=== PATIENT | male | born 1945 | race Caucasian/White ===

== ENCOUNTER 2018-08-05 12:58 | Emergency (ER) | payer MEDICARE, OTHER, SELFPAY ==
[2018-08-05] VITALS (7 sets, daily range): BP systolic 157–167; BP diastolic 82–90; PULSE 65–95; RESP 14–26; TEMP 36.7; O2SAT 97–100; BMI 23.3
--- NOTE | 2018-08-05 13:13 | ED.GENADULT ---
HPI - General Adult <Gilda Herring PA-C - Last Filed: 08/05/18 20:44> General Chief complaint: Hypertension Stated complaint: elevated blood pressure and headaches Time Seen by Provider: 08/05/18 13:12 Source: patient Mode of arrival: ambulatory Limitations: no limitations History of Present Illness HPI narrative: This 72-year-old male comes in due to headache and elevated blood pressure today. He states that he woke up this morning and noted onset of a fairly severe headache, initially pain ?9-04/13/09?. He states he rested and applied an ice pack. He states that he does not remember whether he took any aspirin or any medication for it, sometimes he takes Excedrin, however headache has significantly improved since then, states maybe a 7 on the pain scale currently. He states that at lunchtime, he decided to check his blood pressure at home and noted it was 187/108. He states he got ?freaked out? due to the elevated reading and having the headache and came in to have this evaluated. He denies any acute vision change. He states that he had some significant nausea earlier, now very minimal. He did eat today. He has not had any vomiting. He denies any chest pain or pain elsewhere. He denies any dyspnea. He denies any swelling or pain in the extremities. No difficulty with speech, swallowing, coordination. He states that he has been under severe stress with a huge workload for months, even worse in the last couple of weeks. He states he did have some milder headaches last week for which he took some aspirin but was able to work. He does not typically get severe headaches like this. He states that he had some allergy symptoms last month but no respiratory or URI symptoms in the last week, no fever or other new symptoms on systems review. He was previously on blood pressure and cholesterol medication that he stopped roughly 6 months ago. Related Data Home Medications Medication Instructions Recorded Confirmed hydrochlorothiazide 25 mg PO QDAY #0 05/28/16 08/05/18 sildenafil [Viagra] 50 mg PO PRN PRN #0 05/28/16 08/05/18 simvastatin 20 mg PO HS #0 05/28/16 08/05/18 telmisartan [Micardis] 20 mg PO QDAY #0 05/28/16 08/05/18 Allergies Allergy/AdvReac Type Severity Reaction Status Date / Time No Known Drug Allergies Allergy Verified 08/05/18 13:08 Review of Systems <Gilda Herring PA-C - Last Filed: 08/05/18 20:44> Review of Systems ROS Unobtainable: All systems reviewed & are unremarkable except as noted in HPI and below PFSH <Gilda Herring PA-C - Last Filed: 08/05/18 20:44> Medical History (Updated 08/05/18 @ 15:30 by Gilda Herring PA-C) High cholesterol (Chronic) Hypertension (Chronic) Insomnia (Chronic) Strabismus, mechanical (Chronic) Surgical History (Updated 08/05/18 @ 14:05 by Gilda Herring PA-C) S/P inguinal hernia repair (Resolved) S/P shoulder surgery (Resolved) Social History Smoking Status: Former smoker Social History Smoking Status: Former smoker Comment: occ ETOH Exam <Gilda Herring PA-C - Last Filed: 08/05/18 20:44> Narrative Exam Narrative: GENERAL APPEARANCE: Patient sitting comfortably, in no distress. HEENT: PERRL, left eye deviates laterally when right fixates and vice versa, normal TMs and oropharynx, no sinus tenderness NECK/THYROID: Neck supple, no JVD. LUNGS: Clear to auscultation bilaterally. HEART: Regular rate and rhythm without murmur, normal S1, S2, no S3 or S4. ABDOMEN: Soft, NT, ND, + BS x 4 quadrants EXTREMITIES: No cyanosis. No calf tenderness NEUROLOGIC: Alert and oriented, normal speech, gait and coordination. Initial Vital Signs Initial Vital Signs: Vital Signs Temperature 98.1 F 08/05/18 13:02 Pulse Rate 95 H 08/05/18 13:02 Respiratory Rate 14 08/05/18 13:02 Blood Pressure 167/89 H 08/05/18 13:02 Pulse Oximetry 97 08/05/18 13:02 <Anurag Schmitt DO - Last Filed: 08/09/18 02:11> Initial Vital Signs Initial Vital Signs: Vital Signs Temperature 98.1 F 08/05/18 13:02 Pulse Rate 95 H 08/05/18 13:02 Respiratory Rate 14 08/05/18 13:02 Blood Pressure 167/89 H 08/05/18 13:02 Pulse Oximetry 97 08/05/18 13:02 Course <Gilda Herring PA-C - Last Filed: 08/05/18 20:44> Additional Information: Patient reported nausea resolved at time of discharge. he had had improvement in headache prior to arrival, minimally improved here. [place]. findings reviewed and advised return if any acutely worsening symptoms. Also advised he should be back on BP and cholesterol medications, and needs to find alternative if side effects are bothersome. He agrees to call PCP office on discharge and set up follow-up for Wednesday. Orders Ordered: Discontinued Medications Acetaminophen (Tylenol) 975 mg PO NOW ONE Stop: 08/05/18 15:18 Last Admin: 08/05/18 15:35 Dose: 975 mg Aspirin (Aspirin Chew) 324 mg PO NOW ONE Stop: 08/05/18 13:49 Last Admin: 08/05/18 14:09 Dose: 324 mg Sodium Chloride (Normal Saline 0.9%) 1,000 mls @ 1,000 mls/hr IV BOLUS ONE Stop: 08/05/18 14:49 Last Infusion: 08/05/18 15:35 Dose: 0 mls/hr Admin: 08/05/18 14:29 Dose: 1,000 mls/hr Ondansetron HCl (Zofran) 4 mg IV NOW ONE Stop: 08/05/18 13:49 Last Admin: 08/05/18 14:29 Dose: 4 mg Vital Signs - 8 hr 08/05/18 13:02 08/05/18 13:30 08/05/18 14:30 Temperature 98.1 F Pulse Rate 95 H 76 68 Respiratory Rate 14 14 14 Blood Pressure 167/89 H Blood Pressure [Left Arm] 164/82 H 166/83 H Pulse Oximetry 97 98 98 08/05/18 15:00 08/05/18 15:15 08/05/18 16:08 Temperature Pulse Rate 81 74 65 Respiratory Rate 26 H 21 15 Blood Pressure Blood Pressure [Left Arm] 158/84 H 158/84 H 157/90 H Pulse Oximetry 99 100 100 08/05/18 16:34 Temperature 98.0 F Pulse Rate 69 Respiratory Rate 18 Blood Pressure 157/90 H Blood Pressure [Left Arm] Pulse Oximetry 100 <Anurag Schmitt DO - Last Filed: 08/09/18 02:11> Orders Ordered: Discontinued Medications Acetaminophen (Tylenol) 975 mg PO NOW ONE Stop: 08/05/18 15:18 Last Admin: 08/05/18 15:35 Dose: 975 mg Aspirin (Aspirin Chew) 324 mg PO NOW ONE Stop: 08/05/18 13:49 Last Admin: 08/05/18 14:09 Dose: 324 mg Sodium Chloride (Normal Saline 0.9%) 1,000 mls @ 1,000 mls/hr IV BOLUS ONE Stop: 08/05/18 14:49 Last Infusion: 08/05/18 15:35 Dose: 0 mls/hr Admin: 08/05/18 14:29 Dose: 1,000 mls/hr Ondansetron HCl (Zofran) 4 mg IV NOW ONE Stop: 08/05/18 13:49 Last Admin: 08/05/18 14:29 Dose: 4 mg Vital Signs - 8 hr 08/05/18 13:02 08/05/18 13:30 08/05/18 14:30 Temperature 98.1 F Pulse Rate 95 H 76 68 Respiratory Rate 14 14 14 Blood Pressure 167/89 H Blood Pressure [Left Arm] 164/82 H 166/83 H Pulse Oximetry 97 98 98 08/05/18 15:00 08/05/18 15:15 08/05/18 16:08 Temperature Pulse Rate 81 74 65 Respiratory Rate 26 H 21 15 Blood Pressure Blood Pressure [Left Arm] 158/84 H 158/84 H 157/90 H Pulse Oximetry 99 100 100 08/05/18 16:34 Temperature 98.0 F Pulse Rate 69 Respiratory Rate 18 Blood Pressure 157/90 H Blood Pressure [Left Arm] Pulse Oximetry 100 Medical Decision Making <Gilda Herring PA-C - Last Filed: 08/05/18 20:44> Lab Data Lab results reviewed: Yes I reviewed the patient's lab results. Result diagrams: 08/05/18 14:20 08/05/18 14:20 Lab Results 08/05/18 08/05/18 Range/Units 14:20 14:20 WBC 5.7 (4.5-11.0) X10^3/uL RBC 5.54 (4.5-5.9) X10^6/uL Hgb 15.9 (13.5-17.5) g/dL Hct 46.9 (41-53) % MCV 84.7 (80-100) fL MCH 28.8 (26-34) PG MCHC 34.0 (30-36) % RDW 16.6 H (11.6-14.8) % Plt Count 232 (150-400) X10^3/uL Neut % (Auto) 71.6 (50-75) % Lymph % (Auto) 19.6 L (25-40) % Catron % (Auto) 6.4 (3-14) % Eos % (Auto) 1.5 L (2-4) % Baso % (Auto) 0.9 (0-2) % Neut # (Auto) 4100 (9717-2186) /uL Lymph # (Auto) 1100 (0677-2870) /uL Catron # (Auto) 400 (0-900) /uL Eos # (Auto) 100 (0-450) /uL Baso # (Auto) 100 (0-100) /uL Sodium 137 (137-145) mmol/L Potassium 3.5 (3.4-5.1) mmol/L Chloride 104 (98-107) mmol/L Carbon Dioxide 24 (22-32) mmol/L BUN 17 (9-20) mg/dL Creatinine 0.80 (0.66-1.25) mg/dL Estimated GFR > 60.0 (>60) mL/min BUN/Creatinine Ratio 21.3 (6-22) Glucose 99 (80-110) mg/dL Calcium 9.8 (8.4-10.2) mg/dL Total Bilirubin 0.5 (0.2-1.3) mg/dL AST 30 (17-59) IU/L ALT 22 (21-72) IU/L Alkaline Phosphatase 72 (38-126) U/L Total Creatine Kinase 119 (55-170) U/L CK-MB (CK-2) 1.25 (<2.37) ng/mL CK-MB (CK-2) Rel Index 1.1 L (1.5-5.0) % Troponin I < 0.012 (0.01-0.034) ng/mL Total Protein 7.3 (6.3-8.2) g/dL Albumin 4.3 (3.5-5.0) g/dL Globulin 3.0 (1.7-4.1) g/dL Albumin/Globulin Ratio 1.4 (1.0-2.8) Lipase 109 (23-300) U/L Urine Dip Bedside Urine Glucose Negative Bedside Urine Bilirubin - Negative Bedside Urine Ketone - Negative Urine Specific Gail 1.015 Bedside Urine Occult Blood - Negative Bedside Urine pH 6.0 Bedside Urine Protein - Negative Bedside Urine Urobilinogen - Negative Bedside Urine Nitrite - Negative Bedside Urine Leukocytes - Negative Esterase Point of care testing: Urine Dip Bedside Urine Glucose Negative Bedside Urine Bilirubin - Negative Bedside Urine Ketone - Negative Urine Specific Gail 1.015 Bedside Urine Occult Blood - Negative Bedside Urine pH 6.0 Bedside Urine Protein - Negative Bedside Urine Urobilinogen - Negative Bedside Urine Nitrite - Negative Bedside Urine Leukocytes - Negative Esterase Imaging Data CT scan - head: Radiologist's impression: Chart [facility] Diagn[employer] DATE TYPE STATUS AUTHOR Hx 08/05/18 13:49 Min Fisher 08/05/18 13:48 Min Fisher Stephan C 72, M0 1945 [facility] ER, ED.LOC - Main ED: R05 177.8cm 73.936kg BMI: 23.4kg/m? Hypertension Search Chart ONSET Today 13:30 Jovi Knox 72 M 1945 [place] [address] CT Scan Report Signed Patient: Jovi Knox CMR#: [id number] : 1945cct:[id number] Age/Sex: 72 / MDate of Service: 08/05/18 Loc: ED Accession Number: [id number] Procedure: CT head/brain wo con Ordering Provider: Gilda Herring P.A-C PROCEDURE: CT HEAD/BRAIN WO CON INDICATIONS: atypical BORREGO, HTN TECHNIQUE: Noncontrast 4.5 mm thick angled axial sections acquired from the foramen magnum to the vertex, with coronal and sagittal reformats. For radiation dose reduction, the following was used: automated exposure control, adjustment of mA and/or kV according to patient size. COMPARISON: None. FINDINGS: Image quality: Excellent. CSF spaces: Basal cisterns are patent. No extra-axial fluid collections. The ventricles are symmetric in size and shape. Brain: No intracranial bleeds or masses. There is cerebral volume loss for age, with resultant ventricular and sulcal prominence. There are periventricular and deep white matter chronic small vessel ischemic changes. There is intracranial internal carotid artery atherosclerosis. Skull and face: Calvarium and visualized facial bones appear intact, without suspicious lesions. Sinuses: Visualized sinuses and mastoids are clear. IMPRESSION: Mild microvascular atherosclerotic changes in deep white matter of each hemisphere, no source of current headache is found. Dictated by: Min Fisher M.D. on 08/05/2018 at 14:07 Approved by: Min Fisher M.D. on 08/05/2018 at 14:07 chest: Radiologist's impression: Chart [facility] Diagn[employer] DATE TYPE STATUS AUTHOR Hx 08/05/18 13:49 Min Fisher 08/05/18 13:48 Min Fisher Stephan C 72, M0 1945 [facility] ER, ED.LOC - Main ED: R05 177.8cm 73.936kg BMI: 23.4kg/m? Hypertension Search Chart ONSET Today 13:30 Jovi Knox 72 M 1945 [place] [address] XRay Report Signed Patient: EdnajamilaJovi CMR#: [id number] : 1945cct:[id number] Age/Sex: 72 / MDate of Service: 08/05/18 Loc: ED Accession Number: [id number] Procedure: XR chest 1V Ordering Provider: Gilda Herring P.A-C PROCEDURE: XR CHEST 1V INDICATIONS: atypical BORREGO, HTN TECHNIQUE: One view of the chest was acquired. COMPARISON: None. FINDINGS: Surgical changes and devices: None. Lungs and pleura: Lungs are clear. No pleural effusions or pneumothorax. Mediastinum: Mediastinal contours appear normal. Heart size is normal. Bones and chest wall: No suspicious bony lesions. Overlying soft tissues appear unremarkable. IMPRESSION: Normal for age, source of current headache symptoms is not seen. Dictated by: Min Fisher M.D. on 08/05/2018 at 14:07 Approved by: Min Fisher M.D. on 08/05/2018 at 14:08 ECG Data Attestation: I personally reviewed and interpreted this ECG as follows: (Normal sinus rhythm rate 87, borderline left axis deviation, right bundle branch pattern) Prior ECG tracings: not available for review <Anurag Schmitt DO - Last Filed: 08/09/18 02:11> Lab Data Lab Results 08/05/18 08/05/18 Range/Units 14:20 14:20 WBC 5.7 (4.5-11.0) X10^3/uL RBC 5.54 (4.5-5.9) X10^6/uL Hgb 15.9 (13.5-17.5) g/dL Hct 46.9 (41-53) % MCV 84.7 (80-100) fL MCH 28.8 (26-34) PG MCHC 34.0 (30-36) % RDW 16.6 H (11.6-14.8) % Plt Count 232 (150-400) X10^3/uL Neut % (Auto) 71.6 (50-75) % Lymph % (Auto) 19.6 L (25-40) % Catron % (Auto) 6.4 (3-14) % Eos % (Auto) 1.5 L (2-4) % Baso % (Auto) 0.9 (0-2) % Neut # (Auto) 4100 (2124-7518) /uL Lymph # (Auto) 1100 (9262-6526) /uL Catron # (Auto) 400 (0-900) /uL Eos # (Auto) 100 (0-450) /uL Baso # (Auto) 100 (0-100) /uL Sodium 137 (137-145) mmol/L Potassium 3.5 (3.4-5.1) mmol/L Chloride 104 (98-107) mmol/L Carbon Dioxide 24 (22-32) mmol/L BUN 17 (9-20) mg/dL Creatinine 0.80 (0.66-1.25) mg/dL Estimated GFR > 60.0 (>60) mL/min BUN/Creatinine Ratio 21.3 (6-22) Glucose 99 (80-110) mg/dL Calcium 9.8 (8.4-10.2) mg/dL Total Bilirubin 0.5 (0.2-1.3) mg/dL AST 30 (17-59) IU/L ALT 22 (21-72) IU/L Alkaline Phosphatase 72 (38-126) U/L Total Creatine Kinase 119 (55-170) U/L CK-MB (CK-2) 1.25 (<2.37) ng/mL CK-MB (CK-2) Rel Index 1.1 L (1.5-5.0) % Troponin I < 0.012 (0.01-0.034) ng/mL Total Protein 7.3 (6.3-8.2) g/dL Albumin 4.3 (3.5-5.0) g/dL Globulin 3.0 (1.7-4.1) g/dL Albumin/Globulin Ratio 1.4 (1.0-2.8) Lipase 109 (23-300) U/L Urine Dip Bedside Urine Glucose Negative Bedside Urine Bilirubin - Negative Bedside Urine Ketone - Negative Urine Specific Gail 1.015 Bedside Urine Occult Blood - Negative Bedside Urine pH 6.0 Bedside Urine Protein - Negative Bedside Urine Urobilinogen - Negative Bedside Urine Nitrite - Negative Bedside Urine Leukocytes - Negative Esterase Point of care testing: Urine Dip Bedside Urine Glucose Negative Bedside Urine Bilirubin - Negative Bedside Urine Ketone - Negative Urine Specific Gail 1.015 Bedside Urine Occult Blood - Negative Bedside Urine pH 6.0 Bedside Urine Protein - Negative Bedside Urine Urobilinogen - Negative Bedside Urine Nitrite - Negative Bedside Urine Leukocytes - Negative Esterase Discharge Plan Departure Patient Disposition: Home Clinical Impression: Headache Qualifiers: Headache type: unspecified Headache chronicity pattern: acute headache Intractability: not intractable Qualified Code(s): R51 - Headache Hypertension Qualifiers: Hypertension type: essential hypertension Qualified Code(s): I10 - Essential (primary) hypertension Discharge Date/Time: 08/05/18 16:34 Interventions: ED Discharge Assessment Last Done: 08/05/18 16:34 Instructions: DI for High Blood Pressure, DI for Headache Activity Restrictions/Additional Instructions: Please call your PCP and let them know you were seen in the emergency room today for headache and the heart testing, and that we would like you to be seen for follow-up on Wednesday. You should be back on your blood pressure and cholesterol medicines, however since you are having side effects with the hydrochlorothiazide, for example, you may want to discuss making changes with them. You can take your usual headache medicine that you get at the commissary as needed, but as we talked about, you should return here if you are feeling acutely worse again, or if you have new symptoms such as vomiting, vision change, or fever. Please rest in a quiet place today, no ?brain work? or screen time, to help with your headache. Prescriptions: No Action simvastatin 20 MG tablet 20 mg PO HS Qty: 0 RF: 0 telmisartan [Micardis] 20 MG tablet 20 mg PO QDAY Qty: 0 RF: 0 hydrochlorothiazide 25 MG tablet 25 mg PO QDAY Qty: 0 RF: 0 sildenafil [Viagra] 50 MG tablet 50 mg PO PRN PRN (Reason: Erectile Dysfunction) Qty: 0 RF: 0 Referrals: Roselyn Jimenez MD [Primary Care Provider] - <Anurag Schmitt DO - Last Filed: 08/09/18 02:11> [facility] Attending Shantal Attestation: I was immediately available in the department for consultation. Documentation has been reviewed. I agree with assessment and plan.
--- NOTE | 2018-08-05 13:48 | DI.CT.S_ITS ---
PROCEDURE: CT HEAD/BRAIN WO CON INDICATIONS: atypical BORREGO, HTN TECHNIQUE: Noncontrast 4.5 mm thick angled axial sections acquired from the foramen magnum to the vertex, with coronal and sagittal reformats. For radiation dose reduction, the following was used: automated exposure control, adjustment of mA and/or kV according to patient size. COMPARISON: None. FINDINGS: Image quality: Excellent. CSF spaces: Basal cisterns are patent. No extra-axial fluid collections. The ventricles are symmetric in size and shape. Brain: No intracranial bleeds or masses. There is cerebral volume loss for age, with resultant ventricular and sulcal prominence. There are periventricular and deep white matter chronic small vessel ischemic changes. There is intracranial internal carotid artery atherosclerosis. Skull and face: Calvarium and visualized facial bones appear intact, without suspicious lesions. Sinuses: Visualized sinuses and mastoids are clear. IMPRESSION: Mild microvascular atherosclerotic changes in deep white matter of each hemisphere, no source of current headache is found. Dictated by: Min Fisher M.D. on 08/05/2018 at 14:07 Approved by: Min Fisehr M.D. on 08/05/2018 at 14:07
--- NOTE | 2018-08-05 13:49 | DI.RAD.S_ITS ---
PROCEDURE: XR CHEST 1V INDICATIONS: atypical BORREGO, HTN TECHNIQUE: One view of the chest was acquired. COMPARISON: None. FINDINGS: Surgical changes and devices: None. Lungs and pleura: Lungs are clear. No pleural effusions or pneumothorax. Mediastinum: Mediastinal contours appear normal. Heart size is normal. Bones and chest wall: No suspicious bony lesions. Overlying soft tissues appear unremarkable. IMPRESSION: Normal for age, source of current headache symptoms is not seen. Dictated by: Min Fisher M.D. on 08/05/2018 at 14:07 Approved by: Min Fisher M.D. on 08/05/2018 at 14:08
--- NOTE | 2018-08-05 14:07 | ED_ITS ---
HPI - General Adult <Gilda Herring PA-C - Last Filed: 08/05/18 20:44> General Chief complaint: Hypertension Stated complaint: elevated blood pressure and headaches Time Seen by Provider: 08/05/18 13:12 Source: patient Mode of arrival: ambulatory Limitations: no limitations History of Present Illness HPI narrative: This 72-year-old male comes in due to headache and elevated blood pressure today. He states that he woke up this morning and noted onset of a fairly severe headache, initially pain ?9-04/13/09?. He states he rested and applied an ice pack. He states that he does not remember whether he took any aspirin or any medication for it, sometimes he takes Excedrin, however headache has significantly improved since then, states maybe a 7 on the pain scale currently. He states that at lunchtime, he decided to check his blood pressure at home and noted it was 187/108. He states he got ?freaked out? due to the elevated reading and having the headache and came in to have this evaluated. He denies any acute vision change. He states that he had some significant nausea earlier, now very minimal. He did eat today. He has not had any vomiting. He denies any chest pain or pain elsewhere. He denies any dyspnea. He denies any swelling or pain in the extremities. No difficulty with speech, swallowing, coordination. He states that he has been under severe stress with a huge workload for months, even worse in the last couple of weeks. He states he did have some milder headaches last week for which he took some aspirin but was able to work. He does not typically get severe headaches like this. He states that he had some allergy symptoms last month but no respiratory or URI symptoms in the last week, no fever or other new symptoms on systems review. He was pre viously on blood pressure and cholesterol medication that he stopped roughly 6 months ago. Related Data Home Medications Medication Instructions Recorded Confirmed hydrochlorothiazide 25 mg PO QDAY #0 05/28/16 08/05/18 sildenafil [Viagra] 50 mg PO PRN PRN #0 05/28/16 08/05/18 simvastatin 20 mg PO HS #0 05/28/16 08/05/18 telmisartan [Micardis] 20 mg PO QDAY #0 05/28/16 08/05/18 Allergies Allergy/AdvReac Type Severity Reaction Status Date / Time No Known Drug Allergies Allergy Verified 08/05/18 13:08 Review of Systems <Gilda Herring PA-C - Last Filed: 08/05/18 20:44> Review of Systems ROS Unobtainable: All systems reviewed & are unremarkable except as noted in HPI and below PFSH <Gilda Herring PA-C - Last Filed: 08/05/18 20:44> Medical History (Updated 08/05/18 @ 15:30 by Gilda Herring PA-C) High cholesterol (Chronic) Hypertension (Chronic) Insomnia (Chronic) Strabismus, mechanical (Chronic) Surgical History (Updated 08/05/18 @ 14:05 by Gilda Herring PA-C) S/P inguinal hernia repair (Resolved) S/P shoulder surgery (Resolved) Social History Smoking Status: Former smoker Social History Smoking Status: Former smoker Comment: occ ETOH Exam <Gilda Herring PA-C - Last Filed: 08/05/18 20:44> Narrative Exam Narrative: GENERAL APPEARANCE: Patient sitting comfortably, in no distress. HEENT: PERRL, left eye deviates laterally when right fixates and vice versa, normal TMs and oropharynx, no sinus tenderness NECK/THYROID: Neck supple, no JVD. LUNGS: Clear to auscultation bilaterally. HEART: Regular rate and rhythm without murmur, normal S1, S2, no S3 or S4. ABDOMEN: Soft, NT, ND, + BS x 4 quadrants EXTREMITIES: No cyanosis. No calf tenderness NEUROLOGIC: Alert and oriented, normal speech, gait and coordination. Initial Vital Signs Initial Vital Signs: Vital Signs Temperature 98.1 F 08/05/18 13:02 Pulse Rate 95 H 08/05/18 13:02 Respiratory Rate 14 08/05/18 13:02 Blood Pressure 167/89 H 08/05/18 13:02 Pulse Oximetry 97 08/05/18 13:02 <Anurag Schmitt DO - Last Filed: 08/09/18 02:11> Initial Vital Signs Initial Vital Signs: Vital Signs Temperature 98.1 F 08/05/18 13:02 Pulse Rate 95 H 08/05/18 13:02 Respiratory Rate 14 08/05/18 13:02 Blood Pressure 167/89 H 08/05/18 13:02 Pulse Oximetry 97 04/26/19 13:02 Course <Gilda Herring PA-C - Last Filed: 08/05/18 20:44> Additional Information: Patient reported nausea resolved at time of discharge. he had had improvement in headache prior to arrival, minimally improved here. [place]. findings reviewed and advised return if any acutely worsening symptoms. Also advised he should be back on BP and cholesterol medications, and needs to find alternative if side effects are bothersome. He agrees to call PCP office on discharge and set up follow-up for Wednesday. Orders Ordered: Discontinued Medications Acetaminophen (Tylenol) 975 mg PO NOW ONE Stop: 08/05/18 15:18 Last Admin: 08/05/18 15:35 Dose: 975 mg Aspirin (Aspirin Chew) 324 mg PO NOW ONE Stop: 08/05/18 13:49 Last Admin: 08/05/18 14:09 Dose: 324 mg Sodium Chloride (Normal Saline 0.9%) 1,000 mls @ 1,000 mls/hr IV BOLUS ONE Stop: 08/05/18 14:49 Last Infusion: 08/05/18 15:35 Dose: 0 mls/hr Admin: 08/05/18 14:29 Dose: 1,000 mls/hr Ondansetron HCl (Zofran) 4 mg IV NOW ONE Stop: 08/05/18 13:49 Last Admin: 08/05/18 14:29 Dose: 4 mg Vital Signs - 8 hr 08/05/18 13:02 08/05/18 13:30 08/05/18 14:30 Temperature 98.1 F Pulse Rate 95 H 76 68 Respiratory Rate 14 14 14 Blood Pressure 167/89 H Blood Pressure [Left Arm] 164/82 H 166/83 H Pulse Oximetry 97 98 98 08/05/18 15:00 08/05/18 15:15 08/05/18 16:08 Temperature Pulse Rate 81 74 65 Respiratory Rate 26 H 21 15 Blood Pressure Blood Pressure [Left Arm] 158/84 H 158/84 H 157/90 H Pulse Oximetry 99 100 100 08/05/18 16:34 Temperature 98.0 F Pulse Rate 69 Respiratory Rate 18 Blood Pressure 157/90 H Blood Pressure [Left Arm] Pulse Oximetry 100 <Anurag Schmitt DO - Last Filed: 08/09/18 02:11> Orders Ordered: Discontinued Medications Acetaminophen (Tylenol) 975 mg PO NOW ONE Stop: 08/05/18 15:18 Last Admin: 08/05/18 15:35 Dose: 975 mg Aspirin (Aspirin Chew) 324 mg PO NOW ONE Stop: 08/05/18 13:49 Last Admin: 08/05/18 14:09 Dose: 324 mg Sodium Chloride (Normal Saline 0.9%) 1,000 mls @ 1,000 mls/hr IV BOLUS ONE Stop: 08/05/18 14:49 Last Infusion: 08/05/18 15:35 Dose: 0 mls/hr Admin: 08/05/18 14:29 Dose: 1,000 mls/hr Ondansetron HCl (Zofran) 4 mg IV NOW ONE Stop: 08/05/18 13:49 Last Admin: 08/05/18 14:29 Dose: 4 mg Vital Signs - 8 hr 08/05/18 13:02 08/05/18 13:30 08/05/18 14:30 Temperature 98.1 F Pulse Rate 95 H 76 68 Respiratory Rate 14 14 14 Blood Pressure 167/89 H Blood Pressure [Left Arm] 164/82 H 166/83 H Pulse Oximetry 97 98 98 08/05/18 15:00 08/05/18 15:15 08/05/18 16:08 Temperature Pulse Rate 81 74 65 Respiratory Rate 26 H 21 15 Blood Pressure Blood Pressure [Left Arm] 158/84 H 158/84 H 157/90 H Pulse Oximetry 99 100 100 08/05/18 16:34 Temperature 98.0 F Pulse Rate 69 Respiratory Rate 18 Blood Pressure 157/90 H Blood Pressure [Left Arm] Pulse Oximetry 100 Medical Decision Making <Gilda Herring PA-C - Last Filed: 08/05/18 20:44> Lab Data Lab results reviewed: Yes I reviewed the patient's lab results. Result diagrams: 08/05/18 14:20 08/05/18 14:20 Lab Results 08/05/18 08/05/18 Range/Units 14:20 14:20 WBC 5.7 (4.5-11.0) X10^3/uL RBC 5.54 (4.5-5.9) X10^6/uL Hgb 15.9 (13.5-17.5) g/dL Hct 46.9 (41-53) % MCV 84.7 (80-100) fL MCH 28.8 (26-34) PG MCHC 34.0 (30-36) % RDW 16.6 H (11.6-14.8) % Plt Count 232 (150-400) X10^3/uL Neut % (Auto) 71.6 (50-75) % Lymph % (Auto) 19.6 L (25-40) % Harvey % (Auto) 6.4 (3-14) % Eos % (Auto) 1.5 L (2-4) % Baso % (Auto) 0.9 (0-2) % Neut # (Auto) 4100 (7282-3583) /uL Lymph # (Auto) 1100 (4996-3556) /uL Harvey # (Auto) 400 (0-900) /uL Eos # (Auto) 100 (0-450) /uL Baso # (Auto) 100 (0-100) /uL Sodium 137 (137-145) mmol/L Potassium 3.5 (3.4-5.1) mmol/L Chloride 104 (98-107) mmol/L Carbon Dioxide 24 (22-32) mmol/L BUN 17 (9-20) mg/dL Creatinine 0.80 (0.66-1.25) mg/dL Estimated GFR > 60.0 (>60) mL/min BUN/Creatinine Ratio 21.3 (6-22) Glucose 99 (80-110) mg/dL Calcium 9.8 (8.4-10.2) mg/dL Total Bilirubin 0.5 (0.2-1.3) mg/dL AST 30 (17-59) IU/L ALT 22 (21-72) IU/L Alkaline Phosphatase 72 (38-126) U/L Total Creatine Kinase 119 (55-170) U/L CK-MB (CK-2) 1.25 (<2.37) ng/mL CK-MB (CK-2) Rel Index 1.1 L (1.5-5.0) % Troponin I < 0.012 (0.01-0.034) ng/mL Total Protein 7.3 (6.3-8.2) g/dL Albumin 4.3 (3.5-5.0) g/dL Globulin 3.0 (1.7-4.1) g/dL Albumin/Globulin Ratio 1.4 (1.0-2.8) Lipase 109 (23-300) U/L Urine Dip Bedside Urine Glucose Negative Bedside Urine Bilirubin - Negative Bedside Urine Ketone - Negative Urine Specific [place] 1.015 Bedside Urine Occult Blood - Negative Bedside Urine pH 6.0 Bedside Urine Protein - Negative Bedside Urine Urobilinogen - Negative Bedside Urine Nitrite - Negative Bedside Urine Leukocytes - Negative Esterase Point of care testing: Urine Dip Bedside Urine Glucose Negative Bedside Urine Bilirubin - Negative Bedside Urine Ketone - Negative Urine Specific [place] 1.015 Bedside Urine Occult Blood - Negative Bedside Urine pH 6.0 Bedside Urine Protein - Negative Bedside Urine Urobilinogen - Negative Bedside Urine Nitrite - Negative Bedside Urine Leukocytes - Negative Esterase Imaging Data CT scan - head: Radiologist's impression: Chart [facility] [employer] DATE TYPE STATUS AUTHOR Hx 08/05/18 13:49 Min Fisher 08/05/18 13:48 Min Fisher Stephan C 72, M0 1945 [facility] ER, ED.LOC - Main ED: R05 177.8cm 73.936kg BMI: 23.4kg/m? Hypertension Search Chart ONSET Today 13:30 Jovi Knox 1945 [place] [address] CT Scan Report Signed Patient: Jovi Knox CMR#: [id number] : 1945cct:[id number] Age/Sex: 72 / MDate of Service: 08/05/18 Loc: ED Accession Number: [id number] Procedure: CT head/brain wo con Ordering Provider: Gilda Herring P.A-C PROCEDURE: CT HEAD/BRAIN WO CON INDICATIONS: atypical BORREGO, HTN TECHNIQUE: Noncontrast 4.5 mm thick angled axial sections acquired from the foramen magnum to the vertex, with coronal and sagittal reformats. For radiation dose reduction, the following was used: automated exposure control, adjustment of mA and/or kV according to patient size. COMPARISON: None. FINDINGS: Image quality: Excellent. CSF spaces: Basal cisterns are patent. No extra-axial fluid collections. The ventricles are symmetric in size and shape. Brain: No intracranial bleeds or masses. There is cerebral volume loss for age, with resultant ventricular and sulcal prominence. There are periventricular and deep white matter chronic small vessel ischemic changes. There is intracranial internal carotid artery atherosclerosis. Skull and face: Calvarium and visualized facial bones appear intact, without suspicious lesions. Sinuses: Visualized sinuses and mastoids are clear. IMPRESSION: Mild microvascular atherosclerotic changes in deep white matter of each hemisphere, no source of current headache is found. Dictated by: Min Fisher M.D. on 08/05/2018 at 14:07 Approved by: Min Fisher M.D. on 08/05/2018 at 14:07 chest: Radiologist's impression: Chart [facility] Diagn[employer] DATE TYPE STATUS AUTHOR Hx 08/05/18 13:49 Min Fisher 08/05/18 13:48 Min Fisher Stephan C 72, M0 1945 [facility] ER, ED.LOC - Main ED: R05 177.8cm 73.936kg BMI: 23.4kg/m? Hypertension Search Chart ONSET Today 13:30 Jovi Knox 72 M 1945 [place] [address] XRay Report Signed Patient: EdnaAbelardo marinohan CMR#: [id number] : 1945cct:[id number] Age/Sex: 72 / MDate of Service: 08/05/18 Loc: ED Accession Number: [id number] Procedure: XR chest 1V Ordering Provider: Gilda Herring P.A-C PROCEDURE: XR CHEST 1V INDICATIONS: atypical BORREGO, HTN TECHNIQUE: One view of the chest was acquired. COMPARISON: None. FINDINGS: Surgical changes and devices: None. Lungs and pleura: Lungs are clear. No pleural effusions or pneumothorax. Mediastinum: Mediastinal contours appear normal. Heart size is normal. Bones and chest wall: No suspicious bony lesions. Overlying soft tissues appear unremarkable. IMPRESSION: Normal for age, source of current headache symptoms is not seen. Dictated by: Min Fisher M.D. on 08/05/2018 at 14:07 Approved by: Min Fisher M.D. on 08/05/2018 at 14:08 ECG Data Attestation: I personally reviewed and interpreted this ECG as follows: (Normal sinus rhythm rate 87, borderline left axis deviation, right bundle branch pattern) Prior ECG tracings: not available for review <Anurag Schmitt DO - Last Filed: 08/09/18 02:11> Lab Data Lab Results 08/05/18 08/05/18 Range/Units 14:20 14:20 WBC 5.7 (4.5-11.0) X10^3/uL RBC 5.54 (4.5-5.9) X10^6/uL Hgb 15.9 (13.5-17.5) g/dL Hct 46.9 (41-53) % MCV 84.7 (80-100) fL MCH 28.8 (26-34) PG MCHC 34.0 (30-36) % RDW 16.6 H (11.6-14.8) % Plt Count 232 (150-400) X10^3/uL Neut % (Auto) 71.6 (50-75) % Lymph % (Auto) 19.6 L (25-40) % Harvey % (Auto) 6.4 (3-14) % Eos % (Auto) 1.5 L (2-4) % Baso % (Auto) 0.9 (0-2) % Neut # (Auto) 4100 (7521-3299) /uL Lymph # (Auto) 1100 (2616-3113) /uL Harvey # (Auto) 400 (0-900) /uL Eos # (Auto) 100 (0-450) /uL Baso # (Auto) 100 (0-100) /uL Sodium 137 (137-145) mmol/L Potassium 3.5 (3.4-5.1) mmol/L Chloride 104 (98-107) mmol/L Carbon Dioxide 24 (22-32) mmol/L BUN 17 (9-20) mg/dL Creatinine 0.80 (0.66-1.25) mg/dL Estimated GFR > 60.0 (>60) mL/min BUN/Creatinine Ratio 21.3 (6-22) Glucose 99 (80-110) mg/dL Calcium 9.8 (8.4-10.2) mg/dL Total Bilirubin 0.5 (0.2-1.3) mg/dL AST 30 (17-59) IU/L ALT 22 (21-72) IU/L Alkaline Phosphatase 72 (38-126) U/L Total Creatine Kinase 119 (55-170) U/L CK-MB (CK-2) 1.25 (<2.37) ng/mL CK-MB (CK-2) Rel Index 1.1 L (1.5-5.0) % Troponin I < 0.012 (0.01-0.034) ng/mL Total Protein 7.3 (6.3-8.2) g/dL Albumin 4.3 (3.5-5.0) g/dL Globulin 3.0 (1.7-4.1) g/dL Albumin/Globulin Ratio 1.4 (1.0-2.8) Lipase 109 (23-300) U/L Urine Dip Bedside Urine Glucose Negative Bedside Urine Bilirubin - Negative Bedside Urine Ketone - Negative Urine Specific [place] 1.015 Bedside Urine Occult Blood - Negative Bedside Urine pH 6.0 Bedside Urine Protein - Negative Bedside Urine Urobilinogen - Negative Bedside Urine Nitrite - Negative Bedside Urine Leukocytes - Negative Esterase Point of care testing: Urine Dip Bedside Urine Glucose Negative Bedside Urine Bilirubin - Negative Bedside Urine Ketone - Negative Urine Specific [place] 1.015 Bedside Urine Occult Blood - Negative Bedside Urine pH 6.0 Bedside Urine Protein - Negative Bedside Urine Urobilinogen - Negative Bedside Urine Nitrite - Negative Bedside Urine Leukocytes - Negative Esterase Discharge Plan Departure Patient Disposition: Home Clinical Impression: Headache Qualifiers: Headache type: unspecified Headache chronicity pattern: acute headache Intractability: not intractable Qualified Code(s): R51 - Headache Hypertension Qualifiers: Hypertension type: essential hypertension Qualified Code(s): I10 - Essential (primary) hypertension Discharge Date/Time: 08/05/18 16:34 Interventions: ED Discharge Assessment Last Done: 08/05/18 16:34 Instructions: DI for High Blood Pressure, DI for Headache Activity Restrictions/Additional Instructions: Please call your PCP and let them know you were seen in the emergency room today for headache and the heart testing, and that we would like you to be seen for follow-up on Wednesday. You should be back on your blood pressure and cholesterol medicines, however since you are having side effects with the hydrochlorothiazide, for example, you may want to discuss making changes with them. You can take your usual headache medicine that you get at the commissary as needed, but as we talked about, you should return here if you are feeling acutely worse again, or if you have new symptoms such as vomiting, vision change, or fever. Please rest in a quiet place today, no ?brain work? or screen time, to help with your headache. Prescriptions: No Action simvastatin 20 MG tablet 20 mg PO HS Qty: 0 RF: 0 telmisartan [Micardis] 20 MG tablet 20 mg PO QDAY Qty: 0 RF: 0 hydrochlorothiazide 25 MG tablet 25 mg PO QDAY Qty: 0 RF: 0 sildenafil [Viagra] 50 MG tablet 50 mg PO PRN PRN (Reason: Erectile Dysfunction) Qty: 0 RF: 0 Referrals: Roselyn Jimenez MD [Primary Care Provider] - <Anurag Schmitt DO - Last Filed: 08/09/18 02:11> [facility] Attending Shantal Attestation: I was immediately available in the department for consultation. Documentation has been reviewed. I agree with assessment and plan.
[2018-08-05] MEDS: ASPIRIN 81 MG TAB 324 MG PO (14:09)
[2018-08-05] MEDS: SODIUM CHLORIDE 0.9% 1,000 ML 1000 ML IV (14:29)
[2018-08-05] MEDS: ONDANSETRON 4 MG/2 ML INJ IV (14:29)
[2018-08-05 14:30] LABS: Add Manual Diff / Slide Review NO; Basophils Absolute Auto 100 /uL (0-100); Basophils Percent Auto 0.9 % (0-2); Eosinophils Absolute Auto 100 /uL (0-450); Eosinophils Percent Auto 1.5 % (2-4); Hematocrit 46.9 % (41-53); Hemoglobin 15.9 g/dL (13.5-17.5); Lymphocytes Absolute Auto 1100 /uL (1100-4500); Lymphocytes Percent Auto 19.6 % (25-40); Mean Corpuscular Hemoglobin 28.8 PG (26-34); Mean Corpuscular Volume 84.7 fL (80-100); Monocytes Absolute Auto 400 /uL (0-900); Monocytes Percent Auto 6.4 % (3-14); Neutrophils Absolute Auto 4100 /uL (1500-7000); Neutrophils Percent Auto 71.6 % (50-75); Platelet Count 232 X10^3/uL (150-400); Red Blood Cell Count 5.54 X10^6/uL (4.5-5.9); Red Cell Distribution Width 16.6 % (11.6-14.8); White Blood Cell Count 5.7 X10^3/uL (4.5-11.0)
[2018-08-05 14:51] LABS: Alanine Aminotransferase 22 IU/L (21-72); Albumin 4.3 g/dL (3.5-5.0); Albumin Globulin Ratio 1.4 (1.0-2.8); Alkaline Phosphatase 72 U/L (38-126); Aspartate Aminotransferase 30 IU/L (17-59); BUN Creatinine Ratio 21.3 (6-22); Bilirubin Total 0.5 mg/dL (0.2-1.3); Blood Urea Nitrogen 17 mg/dL (9-20); Calcium 9.8 mg/dL (8.4-10.2); Carbon Dioxide 24 mmol/L (22-32); Chloride 104 mmol/L (98-107); Creatine Kinase 119 U/L (55-170); Estimated Glomerular Filt Rate > 60.0 mL/min (>60); Glucose 99 mg/dL (80-110); HEMOLYSIS < 15 (0-50); Lipase 109 U/L (23-300); Potassium 3.5 mmol/L (3.4-5.1); Sodium 137 mmol/L (137-145); Total Protein 7.3 g/dL (6.3-8.2)
[2018-08-05 15:04] LABS: Troponin I < 0.012 ng/mL (0.01-0.034)
[2018-08-05 15:08] LABS: CKMB % Relative Index 1.1 % (1.5-5.0); Creatine Kinase MB 1.25 ng/mL (<2.37)
[2018-08-05] MEDS: ACETAMINOPHEN 325 MG TABLET 975 MG PO (15:35)
== END 2018-08-05 16:34 | disposition home or self-care (01) ==
PROVIDERS: Emergency Provider Internal Medicine; Family Provider Internal Medicine; PCP Internal Medicine
DX: R51 Headache (principal); I10 Essential (primary) hypertension
CPT/HCPCS: 36591; 70450; 71045; 80053; 81003; 82550; 82553; 83690; 84484; 85025; 93005; 96361; 96374; 99284; 99285; J2405

== ENCOUNTER → 2019-02-17 07:25 | Outpatient (CLI) | payer MEDICARE, OTHER, SELFPAY ==
--- NOTE | 2019-02-17 | DI.MRI.S_ITS ---
PROCEDURE: MR KNEE LT WO CON INDICATIONS: Unilateral primary osteoarthritis, left knee TECHNIQUE: Noncontrast sagittal PD fast spin echo and T2 fast spin echo with fat saturation, sagittal 3-D FLASH with fat saturation; coronal T1 spin echo and PD fast spin echo with fat saturation, and axial PD fast spin echo with fat saturation through the knee. COMPARISON: None. FINDINGS: Image quality: Excellent. Menisci: Complex medial meniscal tear involving posterior horn and body, with partial extrusion. Abnormal signal extending to the inferior and superior articular surfaces as well as displaced meniscal fragment in the medial gutter Lateral meniscus intact. Cruciate ligaments: Thickening and striated appearance of the anterior cruciate ligament, with possible area or intraligamentous ganglion cyst, most suspicious for mucoid degeneration Posterior cruciate ligament appears intact. Medial structures: There is medial bowing of the medial collateral ligament, with mild internal signal changes and no complete rupture. There is adjacent soft tissue edema. The appearance could reflect reactive changes to medial compartment pathology, versus low-grade sprain of the MCL. Fluid adjacent to the pes anserinus tendons suggestive of mild bursitis Semimembranosus tendon appears intact. Lateral structures: The lateral collateral ligament intact. Biceps femoris tendon appears intact. Popliteus tendon grossly unremarkable. Iliotibial band appears intact. Anterior structures: Quadriceps tendon intact. Medial and lateral patellofemoral ligaments intact although there is mild thickening and intrasubstance signal change involving the patellar attachment of the lateral patellofemoral ligament. There is mild patellar tendinopathy. Prepatellar and superficial infrapatellar subcutaneous edema/fluid. Mild fluid also present within the deep infrapatellar bursa Bones and cartilage: No focal marrow contusion or discrete low signal fracture line. Within the medial compartment, full-thickness femoral and tibial articular cartilage loss and diffuse partial-thickness loss of normal cartilage Within the lateral compartment, fissuring of the weightbearing tibial articular cartilage. Within the patellofemoral compartment, mild surface fraying of the patellofemoral trochlear cartilage Joint space: No pathologic joint effusion. No Beck's cyst. No specific evidence of intra-articular loose body. Small ganglion cyst seen at the origin of the medial gastrocnemius. IMPRESSION: Complex medial meniscal tear involving posterior horn and body with partial extrusion Anterior cruciate ligament mucoid degeneration with associated periligamentous intraligamentous ganglion cyst formation. Tricompartmental joint degeneration, most pronounced in the medial compartment where there is full thickness cartilage denudation. Mild patellar tendinopathy. Mild pes anserinus bursitis. Signal changes and thickening of the patellar attachment of the lateral patellofemoral ligament, suggestive of age indeterminate low-grade sprain without complete rupture. Dictated by: Masoud Vincent M.D. on 02/17/2019 at 9:37 Approved by: Masoud Vincent M.D. on 02/17/2019 at 10:43
== END ==
PROVIDERS: Family Provider Internal Medicine; Visit Provider Orthopaedic Surgery
DX: M17.12 Unilateral primary osteoarthritis, left knee (principal); S83.232A Complex tear of medial meniscus, current injury, left knee, initial encounter; M67.462 Ganglion, left knee; M70.52 Other bursitis of knee, left knee
CPT/HCPCS: 73721

== ENCOUNTER → 2019-02-23 12:55 | Outpatient (CLI) | payer MEDICARE, OTHER, SELFPAY ==
[2019-02-23 13:53] LABS: Bacteria Urine None Seen
[2019-02-23 14:51] LABS: Appearance Urine UA CLEAR; Bilirubin Urine UA NEGATIVE (NEGATIVE); Color Urine UA YELLOW; Glucose Urine UA NEGATIVE (Negative); Ketones Urine UA NEGATIVE (NEGATIVE); Leukocyte Esterase Urine UA NEGATIVE (NEGATIVE); Nitrite Urine UA NEGATIVE (Negative); Occult Blood Urine UA NEGATIVE (Negative); Protein Urine UA NEGATIVE (Negative); Specific Gravity Urine UA <=1.005 (1.000-1.035); Urobilinogen Urine UA 0.2 E.U./dL (0.2); pH Urine UA 5.5 (4.5-8.0)
[2019-02-23 14:59] LABS: Add Manual Diff / Slide Review NO; Basophils Absolute Auto 0 /uL (0-100); Basophils Percent Auto 0.6 % (0-2); Eosinophils Absolute Auto 200 /uL (0-450); Hematocrit 43.9 % (41-53); Hemoglobin 15.1 g/dL (13.5-17.5); Lymphocytes Absolute Auto 1600 /uL (1100-4500); Lymphocytes Percent Auto 28.5 % (25-40); Mean Corpuscular HGB Conc 34.3 % (30-36); Mean Corpuscular Hemoglobin 29.7 PG (26-34); Mean Corpuscular Volume 86.4 fL (80-100); Monocytes Absolute Auto 500 /uL (0-900); Monocytes Percent Auto 8.1 % (3-14); Neutrophils Absolute Auto 3400 /uL (1500-7000); Neutrophils Percent Auto 59.8 % (50-75); Platelet Count 229 X10^3/uL (150-400); Red Blood Cell Count 5.08 X10^6/uL (4.5-5.9); Red Cell Distribution Width 14.3 % (11.6-14.8); White Blood Cell Count 5.7 X10^3/uL (4.5-11.0)
[2019-02-23 15:02] LABS: Culture Indicated Urine Cult Not Indicated; RBC Urine 0-1/HPF (0-5/HPF); Urine Comments Microscopic Normal; WBC Urine 0-1/HPF (0-5/HPF)
[2019-02-23 15:20] LABS: Hemoglobin A1C% w Est Avg Glu 5.3 % (4.0-6.0)
[2019-02-23 15:50] LABS: Blood Urea Nitrogen 20 mg/dL (9-20); Carbon Dioxide 30 mmol/L (22-32); Chloride 101 mmol/L (98-107); Estimated Glomerular Filt Rate > 60.0 mL/min (>60); Glucose 88 mg/dL (80-110); HEMOLYSIS < 15 (0-50); Potassium 4.5 mmol/L (3.4-5.1); Sodium 138 mmol/L (137-145)
== END ==
PROVIDERS: PCP Internal Medicine; Visit Provider Orthopaedic Surgery
DX: Z01.818 Encounter for other preprocedural examination (principal); Z01.812 Encounter for preprocedural laboratory examination; Z13.1 Encounter for screening for diabetes mellitus; N39.9 Disorder of urinary system, unspecified; R73.9 Hyperglycemia, unspecified
CPT/HCPCS: 36415; 80048; 81001; 83036; 85025; 93005

== ENCOUNTER 2019-03-18 19:35 | Emergency (ER) | payer MEDICARE, OTHER, SELFPAY ==
[2019-03-18 19:45] VITALS: BP 157/90; PULSE 85; RESP 18; TEMP 36.6; O2SAT 96
--- NOTE | 2019-03-18 19:57 | DI.RAD.S_ITS ---
PROCEDURE: XR KNEE LT 3V INDICATIONS: POST OP SWELLING/PAIN TECHNIQUE: 3 views of the knee were acquired. COMPARISON: [facility] [place], XR BONE LENGTH SCANOGRAM, 02/17/2019, 8:09. [facility] DAVID Leonard, XR KNEE ARTHRITIC SERIES BI, 11/17/2018, 13:36. FINDINGS: Bones: No fractures or dislocations. There is medial hemiarthroplasty in left knee. Knee prosthesis is anatomically aligned. No evidence for prosthesis failure. No suspicious bony lesions. Soft tissues: Moderate joint effusion. No suspicious soft tissue calcifications. IMPRESSION: 1. Left knee medial hemiarthroplasty with prosthesis in anatomic alignment. 2. No fracture or dislocation. 3. Moderate knee joint effusion. Dictated by: Roberta Key M.D. on 03/18/2019 at 20:48 Approved by: Roberta Key M.D. on 03/18/2019 at 20:51
--- NOTE | 2019-03-18 21:06 | ED_ITS ---
HPI - Extremity Injury (Lower) General Chief Complaint: Extremity Injury, Lower Stated Complaint: knee surgery on Wed,not healing well Time Seen by Provider: 03/18/19 20:53 Source: patient Mode of arrival: Wheelchair Limitations: no limitations Related Data Home Medications Medication Instructions Recorded Confirmed hydrochlorothiazide 25 mg PO QDAY #0 05/28/16 08/05/18 sildenafil [Viagra] 50 mg PO PRN PRN #0 05/28/16 08/05/18 simvastatin 20 mg PO HS #0 05/28/16 08/05/18 telmisartan [Micardis] 20 mg PO QDAY #0 05/28/16 08/05/18 Allergies Allergy/AdvReac Type Severity Reaction Status Date / Time No Known Drug Allergies Allergy Verified 08/05/18 13:08 Patient History Medical History (Updated 08/20/18 @ 00:00 by ) High cholesterol (Chronic) Hypertension (Chronic) Insomnia (Chronic) Strabismus, mechanical (Chronic) Surgical History (Updated 08/05/18 @ 14:05 by Gilda Herring PA-C) S/P inguinal hernia repair (Resolved) S/P shoulder surgery (Resolved) Social History Smoking Status: Former smoker Smoking Status: Former smoker alcohol intake frequency: 0-2 drinks per day Substance Use Type: does not use Exam Initial Vital Signs Initial Vital Signs: Vital Signs Temperature 97.9 F 03/18/19 19:45 Pulse Rate 85 03/18/19 19:45 Respiratory Rate 18 03/18/19 19:45 Blood Pressure 157/90 H 03/18/19 19:45 Pulse Oximetry 96 03/18/19 19:45 Course Orders Ordered: ED Orders 03/18/19 19:57 XR knee LT 3V Stat 03/18/19 20:57 C-Reactive Protein Quant Stat Complete Blood Count AUTO DIFF Stat Comprehensive Metabolic Panel Stat Erythrocyte Sedimentation Rate Stat Procalcitonin Stat Vital Signs Vital signs: Vital Signs - 8 hr 03/18/19 19:45 Temperature 97.9 F Pulse Rate 85 Respiratory Rate 18 Blood Pressure 157/90 H Pulse Oximetry 96 MDM - Extremity Injury (Lower) Imaging Data left knee xray: Radiologist's impression: [address] [address] XRay Report Signed Patient: Jovi Knox [facility]#: [id number] : 8Acct:[id number] Age/Sex: 73 / MDate of Service: 03/18/19 Loc: ED Accession Number: [id number] Procedure: XR knee LT 3V Ordering Provider: Karina Spaulding D.O. PROCEDURE: XR KNEE LT 3V INDICATIONS: POST OP SWELLING/PAIN TECHNIQUE: 3 views of the knee were acquired. COMPARISON: [facility] [place], CR, XR BONE LENGTH SCANOGRAM, 02/17/2019, 8:09. [facility] [place], CR, XR KNEE ARTHRITIC SERIES BI, 11/17/2018, 13:36. FINDINGS: Bones: No fractures or dislocations. There is medial hemiarthroplasty in left knee. Knee prosthesis is anatomically aligned. No evidence for prosthesis failure. No suspicious bony lesions. Soft tissues: Moderate joint effusion. No suspicious soft tissue calcifications. IMPRESSION: 1. Left knee medial hemiarthroplasty with prosthesis in anatomic alignment. 2. No fracture or dislocation. 3. Moderate knee joint effusion. Dictated by: Roberta Key M.D. on 03/18/2019 at 20:48 Approved by: Roberta Key M.D. on 03/18/2019 at 20:51 Discharge Plan Departure Prescriptions: No Action simvastatin 20 MG tablet 20 mg PO HS Qty: 0 RF: 0 telmisartan [Micardis] 20 MG tablet 20 mg PO QDAY Qty: 0 RF: 0 hydrochlorothiazide 25 MG tablet 25 mg PO QDAY Qty: 0 RF: 0 sildenafil [Viagra] 50 MG tablet 50 mg PO PRN PRN (Reason: Erectile Dysfunction) Qty: 0 RF: 0
--- NOTE | 2019-03-18 21:18 | PC.NURSE ---
Pt states that he has not been elevating his leg, that he has been at [employer] top computer working for last three days. Reviewed importance of elevation of leg for healing and pain control w/ verbalized understanding.
--- NOTE | 2019-03-18 21:23 | ED_ITS ---
HPI - Extremity Injury (Lower) <MORAIMA Burnett - Last Filed: 03/18/19 21:38> General Chief Complaint: Extremity Injury, Lower Stated Complaint: knee surgery on Wed,not healing well Time Seen by Provider: 03/18/19 20:53 Source: patient Mode of arrival: Wheelchair Limitations: no limitations History of Present Illness HPI Narrative: The patient is a 73-year-old male former smoker with history of a partial left knee replacement on Wednesday by Dr. Dennis who presents for chief complaint of increased pain swelling and redness at his incision site. He denies any fever, but complains of overall fatigue, malaise muscle aches and chills. He does complain of some nausea, but no vomiting or diarrhea. He states that his incision is red over the medial aspect. He denies any chest dionte n or shortness of breath. He also wonders if this could be related to taking his Clif bandages off earlier than he was supposed to. Per nursing he states that he has been in his computer chair with his leg dangling down for the past 3 days since his surgery. Patient has a history of hypertension, high cholesterol and strabismus. His PCP is Martita. Related Data Home Medications Medication Instructions Recorded Confirmed hydrochlorothiazide 25 mg PO QDAY #0 05/28/16 08/05/18 sildenafil [Viagra] 50 mg PO PRN PRN #0 05/28/16 08/05/18 simvastatin 20 mg PO HS #0 05/28/16 08/05/18 telmisartan [Micardis] 20 mg PO QDAY #0 05/28/16 08/05/18 Previous Rx's Medication Instructions Recorded hydroxyzine pamoate [Vistaril] 50 mg PO QID PRN #14 cap 03/18/19 Allergies Allergy/AdvReac Type Severity Reaction Status Date / Time No Known Drug Allergies Allergy Verified 08/05/18 13:08 Review of Systems <MORAIMA Burnett - Last Filed: 03/18/19 21:38> Constitutional Constitutional: Reports as per HPI and Denies frequent falls ENT Ears, Nose, Mouth, and Throat: Denies dizziness Cardiovascular Cardiovascular: Denies chest pain, Denies irregular heart rhythm, Denies lightheadedness, Denies palpitations, Denies dyspnea, Denies dyspnea on exertion and Denies orthopnea Respiratory Respiratory: Denies cough, Denies dyspnea, Denies dyspnea on exertion and Denies wheezing Gastrointestinal Gastrointestinal: Reports as per HPI Genitourinary Genitourinary: Denies hematuria, Denies flank pain, Denies urinary incontinence and Denies urinary urgency Musculoskeletal Musculoskeletal: Reports as per HPI and Denies numbness Integumentary/Breasts Skin/Breast: Reports as per HPI Neurologic Neurologic: Denies behavioral changes, Denies confusion, Denies dizziness, Denies frequent falls and Denies numbness Psychiatric Psychiatric: Denies behavioral changes and Denies confusion Endocrine Endocrine: Denies palpitations Allergic/Immunologic Allergic/Immunologic: Denies wheezing Patient History <MORAIMA Burnett - Last Filed: 03/18/19 21:38> Medical History (Updated 03/19/19 @ 05:19 by Karina Spaulding DO) High cholesterol (Chronic) Hypertension (Chronic) Insomnia (Chronic) Strabismus, mechanical (Chronic) Surgical History (Updated 03/18/19 @ 23:49 by Karina Spaulding DO) S/P inguinal hernia repair (Resolved) S/P shoulder surgery (Resolved) Social History Smoking Status: Former smoker Smoking Status: Former smoker alcohol intake frequency: 0-2 drinks per day Substance Use Type: does not use Exam <MORAIMA Burnett - Last Filed: 03/18/19 21:38> Narrative Exam Narrative: GENERAL: This is a well-nourished, well-developed patient, no acute distress HEAD: Atraumatic. Normocephalic. No temporal or scalp tenderness. EYES: Pupils equal round and reactive. Extraocular motions intact. No scleral icterus. No injection or drainage. ENT: Nose without bleeding, purulent drainage or septal hematoma. Throat without erythema, tonsillar hypertrophy or exudate. Uvula midline. Airway patent. NECK: Trachea midline. No JVD or lymphadenopathy. Supple, nontender, no meningeal signs. CARDIOVASCULAR: Regular rate and rhythm RESPIRATORY: No cough. No increased respiratory effort. No accessory muscle use. EXTREMITIES: See skin exam. Negative Homans sign right leg. Positive right pedal pulses. BACK: Nontender without deformity or crepitance. No flank tenderness. NEURO: AOx3. SKIN: Postoperative dressing noted on right knee, with slight bleeding through noted. Erythema and ecchymosis noted medial aspect right knee, and diffuse surrounding dressing. Initial Vital Signs Initial Vital Signs: Vital Signs Temperature 97.9 F 03/18/19 19:45 Pulse Rate 85 03/18/19 19:45 Respiratory Rate 18 03/18/19 19:45 Blood Pressure 157/90 H 03/18/19 19:45 Pulse Oximetry 96 03/18/19 19:45 <Karina Spaulding DO - Last Filed: 03/19/19 05:19> Initial Vital Signs Initial Vital Signs: Vital Signs Temperature 97.9 F 03/18/19 19:45 Pulse Rate 85 03/18/19 19:45 Respiratory Rate 18 03/18/19 19:45 Blood Pressure 157/90 H 03/18/19 19:45 Pulse Oximetry 96 03/18/19 19:45 Course <LONNIE BurnettBC - Last Filed: 03/18/19 21:38> Course Course Narrative: Patient care initiated at 9:10 p.m.. Patient signed out to Dr. Spaulding at 21:40 with x-ray done and labs pending. Orders Ordered: ED Orders 03/18/19 21:09 C-Reactive Protein Quant Stat Complete Blood Count AUTO DIFF Stat Comprehensive Metabolic Panel Stat Erythrocyte Sedimentation Rate Stat Procalcitonin Stat 03/18/19 22:53 US periph venous low extrem lt Stat Discontinued Medications Hydroxyzine Pamoate (Vistaril) 50 mg PO NOW ONE Stop: 03/18/19 23:45 Last Admin: 03/19/19 00:20 Dose: 50 mg Documented by: GE Vital Signs Vital signs: Vital Signs - 8 hr 03/18/19 23:18 03/19/19 00:18 Temperature 99.0 F Pulse Rate 72 80 Respiratory Rate 18 14 Blood Pressure [Right Arm] 156/80 H 140/82 Pulse Oximetry 98 95 <Karina Spaulding DO - Last Filed: 03/19/19 05:19> Orders Ordered: ED Orders 03/18/19 21:09 C-Reactive Protein Quant Stat Complete Blood Count AUTO DIFF Stat Comprehensive Metabolic Panel Stat Erythrocyte Sedimentation Rate Stat Procalcitonin Stat 03/18/19 22:53 US periph venous low extrem lt Stat Discontinued Medications Hydroxyzine Pamoate (Vistaril) 50 mg PO NOW ONE Stop: 03/18/19 23:45 Last Admin: 03/19/19 00:20 Dose: 50 mg Documented by: GE Vital Signs Vital signs: Vital Signs - 8 hr 03/18/19 23:18 03/19/19 00:18 Temperature 99.0 F Pulse Rate 72 80 Respiratory Rate 18 14 Blood Pressure [Right Arm] 156/80 H 140/82 Pulse Oximetry 98 95 MDM - Extremity Injury (Lower) <ADRIAN Burnett- - Last Filed: 03/18/19 21:38> Lab Data Result diagrams: 03/18/19 21:09 03/18/19 21:09 Labs: Lab Results 03/18/19 03/18/19 03/18/19 Range/Units 21:09 21:09 21:09 WBC 4.8 (4.5-11.0) X10^3/uL RBC 4.83 (4.5-5.9) X10^6/uL Hgb 14.4 (13.5-17.5) g/dL Hct 42.2 (41-53) % MCV 87.3 (80-100) fL MCH 29.7 (26-34) PG MCHC 34.0 (30-36) % RDW 13.9 (11.6-14.8) % Plt Count 197 (150-400) X10^3/uL Neut % (Auto) 66.6 (50-75) % Lymph % (Auto) 18.4 L (25-40) % [place] % (Auto) 9.9 (3-14) % Eos % (Auto) 4.3 H (2-4) % Baso % (Auto) 0.8 (0-2) % Neut # (Auto) 3200 (8020-2935) /uL Lymph # (Auto) 900 L (8912-1088) /uL [place] # (Auto) 500 (0-900) /uL Eos # (Auto) 200 (0-450) /uL Baso # (Auto) 0 (0-100) /uL ESR 15 (0-15) MM/HR Sodium 137 (137-145) mmol/L Potassium 3.8 (3.4-5.1) mmol/L Chloride 97 L (98-107) mmol/L Carbon Dioxide 32 (22-32) mmol/L BUN 16 (9-20) mg/dL Creatinine 1.00 (0.66-1.25) mg/dL Estimated GFR > 60.0 (>60) mL/min BUN/Creatinine Ratio 16.0 (6-22) Glucose 104 (80-110) mg/dL Calcium 10.0 (8.4-10.2) mg/dL Total Bilirubin 0.7 (0.2-1.3) mg/dL AST 42 (17-59) IU/L ALT 21 (<50) IU/L Alkaline Phosphatase 67 (38-126) U/L C-Reactive Protein 4.4 H (<1.0) mg/dL Total Protein 6.9 (6.3-8.2) g/dL Albumin 4.2 (3.5-5.0) g/dL Globulin 2.7 (1.7-4.1) g/dL Albumin/Globulin Ratio 1.6 (1.0-2.8) Procalcitonin < 0.05 (<0.5) ng/mL Imaging Data left knee xry : Radiologist's impression: [address] [address] XRay Report Signed Patient: Jovi Knox CMR#: [id number] : 8Acct:[id number] Age/Sex: 73 / MDate of Service: 03/18/19 Loc: ED Accession Number: [id number] Procedure: XR knee LT 3V Ordering Provider: Karina Spaulding D.O. PROCEDURE: XR KNEE LT 3V INDICATIONS: POST OP SWELLING/PAIN TECHNIQUE: 3 views of the knee were acquired. COMPARISON: [facility]opedic Downey, DAVID, XR BONE LENGTH SCANOGRAM, 02/17/2019, 8:09. [facility], CR, XR KNEE ARTHRITIC SERIES BI, 11/17/2018, 13:36. FINDINGS: Bones: No fractures or dislocations. There is medial hemiarthroplasty in left knee. Knee prosthesis is anatomically aligned. No evidence for prosthesis failure. No suspicious bony lesions. Soft tissues: Moderate joint effusion. No suspicious soft tissue calcifications. IMPRESSION: 1. Left knee medial hemiarthroplasty with prosthesis in anatomic alignment. 2. No fracture or dislocation. 3. Moderate knee joint effusion. Dictated by: Roberta Key M.D. on 03/18/2019 at 20:48 Approved by: Roberta Key M.D. on 03/18/2019 at 20:51 <Karina Spaulding DO - Last Filed: 03/19/19 05:19> Lab Data Attestation: I reviewed the patient's lab results. Labs: Lab Results 03/18/19 03/18/19 03/18/19 Range/Units 21:09 21:09 21:09 WBC 4.8 (4.5-11.0) X10^3/uL RBC 4.83 (4.5-5.9) X10^6/uL Hgb 14.4 (13.5-17.5) g/dL Hct 42.2 (41-53) % MCV 87.3 (80-100) fL MCH 29.7 (26-34) PG MCHC 34.0 (30-36) % RDW 13.9 (11.6-14.8) % Plt Count 197 (150-400) X10^3/uL Neut % (Auto) 66.6 (50-75) % Lymph % (Auto) 18.4 L (25-40) % [place] % (Auto) 9.9 (3-14) % Eos % (Auto) 4.3 H (2-4) % Baso % (Auto) 0.8 (0-2) % Neut # (Auto) 3200 (0387-9911) /uL Lymph # (Auto) 900 L (2816-1038) /uL [place] # (Auto) 500 (0-900) /uL Eos # (Auto) 200 (0-450) /uL Baso # (Auto) 0 (0-100) /uL ESR 15 (0-15) MM/HR Sodium 137 (137-145) mmol/L Potassium 3.8 (3.4-5.1) mmol/L Chloride 97 L (98-107) mmol/L Carbon Dioxide 32 (22-32) mmol/L BUN 16 (9-20) mg/dL Creatinine 1.00 (0.66-1.25) mg/dL Estimated GFR > 60.0 (>60) mL/min BUN/Creatinine Ratio 16.0 (6-22) Glucose 104 (80-110) mg/dL Calcium 10.0 (8.4-10.2) mg/dL Total Bilirubin 0.7 (0.2-1.3) mg/dL AST 42 (17-59) IU/L ALT 21 (<50) IU/L Alkaline Phosphatase 67 (38-126) U/L C-Reactive Protein 4.4 H (<1.0) mg/dL Total Protein 6.9 (6.3-8.2) g/dL Albumin 4.2 (3.5-5.0) g/dL Globulin 2.7 (1.7-4.1) g/dL Albumin/Globulin Ratio 1.6 (1.0-2.8) Procalcitonin < 0.05 (<0.5) ng/mL Imaging Data knee xray: Radiologist's impression: [address] [address] XRay Report Signed Patient: Jovi Knox CMR#: [id number] : 8Acct:[id number] Age/Sex: 73 / MDate of Service: 03/18/19 Loc: ED Accession Number: [id number] Procedure: XR knee LT 3V Ordering Provider: Karina Spaulding D.O. PROCEDURE: XR KNEE LT 3V INDICATIONS: POST OP SWELLING/PAIN TECHNIQUE: 3 views of the knee were acquired. COMPARISON: [facility] DAVID Seaman, XR BONE LENGTH SCANOGRAM, 02/17/2019, 8:09. [facility] DAVID Seaman, XR KNEE ARTHRITIC SERIES BI, 11/17/2018, 13:36. FINDINGS: Bones: No fractures or dislocations. There is medial hemiarthroplasty in left knee. Knee prosthesis is anatomically aligned. No evidence for prosthesis failure. No suspicious bony lesions. Soft tissues: Moderate joint effusion. No suspicious soft tissue calcifications. IMPRESSION: 1. Left knee medial hemiarthroplasty with prosthesis in anatomic alignment. 2. No fracture or dislocation. 3. Moderate knee joint effusion. Dictated by: Roberta Key M.D. on 03/18/2019 at 20:48 Approved by: Roberta Key M.D. on 03/18/2019 at 20:51 dvt: Radiologist's impression: No evidence of DVT within the left lower extremity MDM Narrative Medical decision making narrative: Patient was signed out to myself, DVT is negative, x-ray does not show any acute fracture or major changes other than a moderate joint effusion and appropriate anatomic alignment. Labs showed no leukocytosis, ESR is normal CRP is elevated patient's chloride is 97. On evaluation patient's lower extremity has more swelling and bruising but does not appear to have infection in the joint or incision itself. Patient and I discussed he has been sitting for hours at a time with his leg bent and tingling at a desk while he was learning Mandarin and I suspect that this is increasing his swelling and increasing his pain. He has not started PT. He was in touch with Dr. Hyman who recommended he increase his oxycodone to 2 tablets 5 mg every 3 hours. We discussed adding some Vistaril to this and that to make sure he is taking ibuprofen unless he has any other contraindications. Patient states that he will try these. Strict return precautions were given. Case was discussed with Dr. Cruz Orthopedic surgery. He has been in touch with the patient earlier this week. Patient is to call on Wednesday for follow- up. Discharge Plan Departure Patient Disposition: Home Clinical Impression: Knee pain, left, S/P knee surgery Discharge Date/Time: 03/19/19 00:49 Instructions: Knee Replacement Activity Restrictions/Additional Instructions: Follow-up with Dr. Dennis, call Wednesday for follow-up appointment. Continue your oxycodone as prescribed and recommended by Dr. Dennis and Dr. Cruz. You may take ibuprofen up to 800 mg every 8 hours with urine or cardiac pain medication. You may also take hydroxyzine 50 mg every 6 hours as needed. Make sure that your keeping your leg elevated, do not sit for long periods with your knee or leg dangling. Return to the ER for fevers greater 100.4 F, rapidly worsening pain, new numbness, loss of sensation, pallor or cyanosis, purulence discharge from her wound or other new or concerning changes, Prescriptions: New hydroxyzine pamoate [Vistaril] 50 mg capsule 50 mg PO QID PRN (Reason: pain) Qty: 14 RF: 0 No Action simvastatin 20 MG tablet 20 mg PO HS Qty: 0 RF: 0 telmisartan [Micardis] 20 MG tablet 20 mg PO QDAY Qty: 0 RF: 0 hydrochlorothiazide 25 MG tablet 25 mg PO QDAY Qty: 0 RF: 0 sildenafil [Viagra] 50 MG tablet 50 mg PO PRN PRN (Reason: Erectile Dysfunction) Qty: 0 RF: 0 Referrals: Heather Anders [Primary Care Provider] -
[2019-03-18 21:24] LABS: Add Manual Diff / Slide Review NO; Basophils Absolute Auto 0 /uL (0-100); Basophils Percent Auto 0.8 % (0-2); Eosinophils Absolute Auto 200 /uL (0-450); Eosinophils Percent Auto 4.3 % (2-4); Hematocrit 42.2 % (41-53); Hemoglobin 14.4 g/dL (13.5-17.5); Lymphocytes Absolute Auto 900 /uL (1100-4500); Lymphocytes Percent Auto 18.4 % (25-40); Mean Corpuscular Hemoglobin 29.7 PG (26-34); Mean Corpuscular Volume 87.3 fL (80-100); Monocytes Absolute Auto 500 /uL (0-900); Monocytes Percent Auto 9.9 % (3-14); Neutrophils Absolute Auto 3200 /uL (1500-7000); Neutrophils Percent Auto 66.6 % (50-75); Platelet Count 197 X10^3/uL (150-400); Red Blood Cell Count 4.83 X10^6/uL (4.5-5.9); Red Cell Distribution Width 13.9 % (11.6-14.8); White Blood Cell Count 4.8 X10^3/uL (4.5-11.0)
[2019-03-18 21:36] LABS: Erythrocyte Sedimentation Rate 15 MM/HR (0-15)
[2019-03-18 21:40] LABS: Alanine Aminotransferase 21 IU/L (<50); Albumin 4.2 g/dL (3.5-5.0); Albumin Globulin Ratio 1.6 (1.0-2.8); Alkaline Phosphatase 67 U/L (38-126); Aspartate Aminotransferase 42 IU/L (17-59); Bilirubin Total 0.7 mg/dL (0.2-1.3); Blood Urea Nitrogen 16 mg/dL (9-20); C-Reactive Protein Quant 4.4 mg/dL (<1.0); Carbon Dioxide 32 mmol/L (22-32); Chloride 97 mmol/L (98-107); Estimated Glomerular Filt Rate > 60.0 mL/min (>60); Globulin 2.7 g/dL (1.7-4.1); Glucose 104 mg/dL (80-110); HEMOLYSIS < 15 (0-50); Potassium 3.8 mmol/L (3.4-5.1); Sodium 137 mmol/L (137-145); Total Protein 6.9 g/dL (6.3-8.2)
[2019-03-18 21:58] LABS: Procalcitonin < 0.05 ng/mL (<0.5)
--- NOTE | 2019-03-18 22:53 | DI.US.S_ITS ---
PROCEDURE: US PERIPH VENOUS LOW EXTREM LT INDICATIONS: PAIN 4 DAYS POST PARTIAL KNEE REPLACEMENT TECHNIQUE: Real-time imaging, as well as color and pulse Doppler interrogation, were performed of the lower extremity deep veins from the inguinal ligament to the popliteal fossa. COMPARISON: None. FINDINGS: The common femoral, femoral and popliteal veins are normally compressible, and free of intraluminal thrombus. Color and pulse Doppler demonstrate normal phasic intraluminal flow. There is normal augmentation response to distal compression maneuver. IMPRESSION: 1. No evidence of deep venous thrombosis in the left lower extremity. Dictated by: Alberto Cisneros M.D. on 03/19/2019 at 6:51 Approved by: Alberto Cisneros M.D. on 03/19/2019 at 6:52
[2019-03-18 23:18] VITALS: BP 156/80; PULSE 72; RESP 18; TEMP 37.2; O2SAT 98
--- NOTE | 2019-03-18 23:19 | PC.NURSE ---
Pt requested to take home medication of oxycodone.
[2019-03-19 00:18] VITALS: BP 140/82; PULSE 80; RESP 14; O2SAT 95
[2019-03-19] MEDS: hydrOXYzine pamoate 25 MG CAPSULE 50 MG PO (00:20)
== END 2019-03-19 00:49 | disposition home or self-care (01) ==
PROVIDERS: Nurse Practitioner Family; Emergency Provider Emergency Medicine; PCP Internal Medicine
DX: G89.18 Other acute postprocedural pain (principal)
CPT/HCPCS: 36415; 73562; 80053; 84145; 85025; 85651; 86140; 93971; 99283; 99284

== ENCOUNTER 2021-02-09 09:47 | Emergency (ER) | payer MEDICARE, OTHER, SELFPAY ==
[2021-02-09 09:54] VITALS: BP 164/87; PULSE 92; RESP 18; TEMP 36.8; O2SAT 96
[2021-02-09 09:55] VITALS: PULSE 89; O2SAT 96
[2021-02-09 10:00] VITALS: PULSE 90; O2SAT 96
[2021-02-09 10:30] VITALS: PULSE 83; O2SAT 96
--- NOTE | 2021-02-09 10:57 | ED_ITS ---
HPI - Wound/Laceration General Chief Complaint: Wound/Laceration Stated Complaint: Throne stuck in right hand Time Seen by Provider: 02/09/21 10:50 Source: patient Mode of arrival: Ambulatory Limitations: no limitations History of Present Illness HPI narrative: This is a 75-year-old male who comes with complaint of a thorn stuck in his 5th digit on the lateral side of his right hand. Patient states yesterday he was putting his lawnmower away when he tripped in any thinks a jordan thorn poked him in the finger. He can see a little bit of a dark discoloration. He does not feel a large door in. He states his tried to remove it with a needle but was unsuccessful. Patient states there has been some mild redness today. No rapid worsening of swelling or pain. He has not had any other symptoms. He does note he had his COVID booster yesterday. He does take medication for hypertension and dyslipidemia but denies any other major medical issues. No allergies to medications. He states his tetanus is up-to-date. Related Data Home Medications Medication Instructions Recorded Confirmed hydrochlorothiazide 25 mg tablet 25 mg PO QDAY #0 05/28/16 08/05/18 sildenafil 50 mg tablet (Viagra) 50 mg PO PRN PRN #0 05/28/16 08/05/18 simvastatin 20 mg tablet 20 mg PO HS #0 05/28/16 08/05/18 telmisartan 20 mg tablet (Micardis) 20 mg PO QDAY #0 05/28/16 08/05/18 Previous Rx's Medication Instructions Recorded hydroxyzine pamoate 50 mg capsule 50 mg PO QID PRN #14 cap 03/18/19 (Vistaril) doxycycline hyclate 100 mg tablet 100 mg PO BID #20 tab 02/09/21 Allergies Allergy/AdvReac Type Severity Reaction Status Date / Time No Known Drug Allergies Allergy Verified 08/05/18 13:08 Review of Systems Review of Systems ROS Unobtainable: All systems reviewed & are unremarkable except as noted in HPI and below Patient History Medical History High cholesterol Hypertension Insomnia Strabismus, mechanical Surgical History S/P inguinal hernia repair S/P shoulder surgery Social History Smoking Status: Former smoker Smoking Status: Former smoker alcohol intake frequency: 0-2 drinks per day Substance Use Type: does not use Exam Narrative Exam Narrative: GENERAL: Alert and oriented x three, male in mild distress. HEENT: Head normocephalic, atraumatic, EOMI, patient does have strabismus on the left, face symmetric, moist mucous membranes NECK: Supple, full range of motion CARDIOVASCULAR: Regular rate and rhythm without murmurs, rubs or gallops. RESPIRATORY: Breath sounds equal bilaterally, no wheezes rales or rhonchi. ABDOMEN: Soft, nontender. Normoactive bowel sounds all 4 quadrants. No guarding or rebound, rigidity, no mass EXTREMITIES: Normal range of motion, no clubbing or edema. Neurovascularly intact. On the lateral side of the right 5th digit patient has small puncture wound with slight darkish discoloration consistent with a puncture. I am unable to clearly visualize a foreign that is easily extract double. Patient has normal range of motion. He has some slight erythema at the site extending within a quarter to 0.5 cm. There is no swelling, there is no purulent drainage. Patient does not have any tenderness over the palmar aspect of the hand, fingers tendons. The puncture his just distal to the distal joint. Cap refills less than 2 seconds in all 5 fingers and patient has 2+ radial pulse. NEUROLOGICAL: Cranial nerves II through XII grossly intact. Moving all extremities SKIN: Warm, dry, no petechiae, no rashes or lesions other than noted above. Initial Vital Signs Initial Vital Signs: Vital Signs Temperature 98.3 F 02/09/21 09:54 Pulse Rate 92 H 02/09/21 09:54 Respiratory Rate 18 02/09/21 09:54 Blood Pressure 164/87 H 02/09/21 09:54 Pulse Oximetry 96 02/09/21 09:54 Procedures Foreign Body OTHER Time of procedure: 12:41 Time Out Performed: no Foreign Body Removal Site: right (5th finger) Description of foreign body: other (thorn) Sedation/Analgesia: none Technique: manual removal Confirmed by:: direct visualization Complications: none Neurovascular: normal capillary fill, distal light touch sensation intact and distal motor function normal Course Orders Ordered: Discontinued Medications Lidocaine/Prilocaine (Lidocaine/Prilocaine 5 Gm) 5 gm TOP NOW ONE Stop: 02/09/21 11:12 Last Admin: 02/09/21 11:56 Dose: 5 gm Documented by: DIANN Vital Signs Vital signs: Vital Signs - 8 hr 02/09/21 09:54 02/09/21 09:55 02/09/21 10:00 Temperature 98.3 F Pulse Rate 92 H 89 90 Respiratory Rate 18 Blood Pressure 164/87 H Pulse Oximetry 96 96 96 02/09/21 10:30 02/09/21 12:27 Temperature Pulse Rate 83 68 Respiratory Rate Blood Pressure 175/96 H Pulse Oximetry 96 97 MDM - Wound/Laceration MDM Narrative Medical decision making narrative: Wound was soaked, prior cane cream was applied and attempted to extract small foreign. I am not able to clearly visualize it but there is some discoloration. Patient's fingers was soaked. Priorly cane was applied and after direct pressure to the adjacent area a small foreign was removed from the puncture wound. It appears to be intact and entirety. There is no discoloration anymore. Patient had bandage applied. Return precautions discussed. Discharge Plan Departure Patient Disposition: Home Clinical Impression: Puncture wound of finger Qualifiers: Encounter type: initial encounter Qualified Code(s): S61.239A - Puncture wound without foreign body of unspecified finger without damage to nail, initial encounter Instructions: DI for Puncture Wound Activity Restrictions/Additional Instructions: Continue to monitor the wound on your hand. If it becomes more red, swollen, increasingly painful or having purulent discharge please return. Protect the wound either by wearing a Band-Aid were similar covering when active. Take antibiotics until completely gone. These antibiotics can make you more likely to have sunburns. Prescription sent to [facility] in [place] Wound Care: Keep wound(s) clean and dry. Wash daily with soap and water only, and then fully dry. Do not use over the counter products (alcohol or peroxide)on the wounds unless instructed by a physician. You can use a small amount of topical triple antibiotic ointment to the affected area twice daily if you wish. If wound condition worsens (increased/expanding redness, developing fluid blisters, or worsening pain), either contact your doctor for an urgent re- assessment , or return to the Emergency Department. Return to the Emergency Department for any new or worsening symptoms. Prescriptions: New doxycycline hyclate 100 mg tablet 100 mg PO BID Qty: 20 RF: 0 No Action simvastatin 20 MG tablet 20 mg PO HS Qty: 0 RF: 0 telmisartan [Micardis] 20 MG tablet 20 mg PO QDAY Qty: 0 RF: 0 hydrochlorothiazide 25 MG tablet 25 mg PO QDAY Qty: 0 RF: 0 sildenafil [Viagra] 50 MG tablet 50 mg PO PRN PRN (Reason: Erectile Dysfunction) Qty: 0 RF: 0 hydroxyzine pamoate [Vistaril] 50 mg capsule 50 mg PO QID PRN (Reason: pain) Qty: 14 RF: 0 Referrals: Heather Anders MD [Primary Care Provider] -
[2021-02-09] MEDS: LIDOCAINE/PRILOCAINE 5 GM TOP (11:56)
--- NOTE | 2021-02-09 11:59 | PC.NURSE ---
Pt's hand soaked in warm saline for 2omin. Prilocaine applied
[2021-02-09 12:27] VITALS: BP 175/96; PULSE 68; O2SAT 97
== END 2021-02-09 12:46 | disposition home or self-care (01) ==
PROVIDERS: Emergency Provider Emergency Medicine; PCP Internal Medicine
DX: S61.246A Puncture wound with foreign body of right little finger without damage to nail, initial encounter (principal); W45.8XXA Other foreign body or object entering through skin, initial encounter
CPT/HCPCS: 10120; 99282

== ENCOUNTER → 2021-03-04 16:10 | Outpatient (ROUT) | payer MEDICARE, OTHER, SELFPAY | PROVIDERS: PCP Internal Medicine; Visit Provider Dermatology | DX: L08.9 Local infection of the skin and subcutaneous tissue, unspecified (principal) | CPT/HCPCS: 87070; 87075; 87205 ==

== ENCOUNTER → 2021-12-22 09:20 | Outpatient (CLI) | payer MEDICARE, OTHER, SELFPAY ==
[2021-12-22 11:58] LABS: COVID19 -Nasal RAPID Negative (Negative)
== END ==
PROVIDERS: PCP Internal Medicine; Visit Provider Surgery
DX: Z01.812 Encounter for preprocedural laboratory examination (principal); Z20.822 Contact with and (suspected) exposure to COVID-19
CPT/HCPCS: 87635; C9803

== ENCOUNTER 2021-12-23 08:05 | Day surgery (SDC) | payer MEDICARE, OTHER, SELFPAY ==
[2021-12-23] MEDS: LACTATED RINGERS 1,000 ML 200 ML IV (08:14)
[2021-12-23 08:22] VITALS: BMI 22.8
[2021-12-23 08:27] VITALS: BP 155/85; PULSE 77; RESP 16; TEMP 37.2; O2SAT 99
--- NOTE | 2021-12-23 08:51 | PM.HP.1 ---
History of Present Illness History of Present Illness Date Patient Seen: 12/23/21 Time Patient Seen: 08:51 Chief complaint: SDC Narrative: The patient presents for colorectal screening. Previous colonoscopy 10 years ago normal. No personal or family history of colon cancer. On further history denies any recent gastrointestinal symptoms. No nausea, vomiting, abdominal pain, loss of appetite, unexplained weight loss, change in bowel habits, diarrhea, constipation, melena, hematochezia, or bright red blood per rectum. Patient History Medical History High cholesterol Hypertension Insomnia Strabismus, mechanical Surgical History S/P inguinal hernia repair S/P shoulder surgery Family & Social History Social History: household members spouse Tobacco & Substance use: Smoking Status Former smoker alcohol intake frequency 0-2 drinks per day Substance Use Type does not use Meds Home Medications and Allergies Home Medications Medication Instructions Recorded Confirmed Type hydrochlorothiazide 25 mg tablet 25 mg PO QDAY ##0 05/28/16 12/23/21 History sildenafil 50 mg tablet (Viagra) 50 mg PO PRN PRN Erectile 05/28/16 12/23/21 History Dysfunction ##0 simvastatin 20 mg tablet 20 mg PO HS ##0 05/28/16 12/23/21 History telmisartan 20 mg tablet (Micardis) 20 mg PO QDAY ##0 05/28/16 12/23/21 History Allergies Allergy/AdvReac Type Severity Reaction Status Date / Time No Known Drug Allergies Allergy Verified 12/23/21 08:15 Exam Vital Signs (past 8 hours): - 12/23/21 08:27 Temperature 98.9 F Pulse Rate 77 Respiratory Rate 16 Blood Pressure 155/85 H Pulse Oximetry 99 Oxygen Delivery Method Room Air Oxygen Delivery Method Room Air Narrative Exam Narrative: General adult male alert oriented no acute distress Abdomen soft nontender nondistended Assessment & Plan Assessment & Plan narrative: The patient requires colorectal screening and colonoscopy is recommended. Technical details were discussed. Risks, benefits, alternatives explained. Risks including but not limited to myocardial infarction, aspiration, bleeding, pain, missed lesion, incomplete examination, need for further radiographic studies, colonic perforation, and need for major abdominal surgery were discussed. All questions were answered to their satisfaction, and they are in agreement with this plan. Time Spent With Patient Critical Care time: I spent a total of [] minutes of critical care time on this patient's care today; this time is exclusive of procedural time.
--- NOTE | 2021-12-23 08:52 | PM.OP.COLON ---
Operative Date/Time/Diagnoses Date of procedure: 12/23/21 Time of procedure: 08:52 Pre-op diagnosis: Screening colonoscopy Procedure & Clinicians Study performed: Colonoscopy Same procedure as scheduled: Yes Indications: Screening Surgeon: Kulwant Esteban Procedure Notes Procedure in detail: Medications: Conscious sedation using 5mg IV midazolam and 125mcg IV of fentanyl The history and physical was performed/updated and the patient is ASA class is 2. The procedure was discussed in detail with the patient. Potential risks complications including infection, bleeding, missed diagnosis, perforation, need for surgery, and were explained. Their questions were answered and informed consent was obtained. Patient was brought to the procedure room and placed standard monitoring equipment. The patient's vital signs were monitored continuously throughout the entire procedure. Prior to starting time-out was performed. The patient was placed in the left lateral recumbent position. Procedural sedation was administered. Examination began with a thorough inspection of the perianal area there was no evidence of fissures, fistulae, external hemorrhoids or cutaneous malignancy. The colonoscopy scope was then placed into the anal canal and was advanced to the cecum, which was identified by the ileocecal valve, the appendiceal orifice and the confluence of the taenia. The scope was then slowly withdrawn examining colon thoroughly in all directions, irrigating it of any residual stool. FINDINGS 1. No masses or polyps 2. Sigmoid-mild diverticulosis 3. Internal hemorrhoids The patient tolerated the procedure well. They will be discharged once criteria are met. The prep was of good/excellent quality. The withdrawl time was 6 minutes. The sedation time was 16 minutes. Specimen(s): none sent Complications: none Impression: Normal colonoscopy Post-procedure Recommendations: High fiber diet Plan for aftercare: No further colonoscopy is likely necessary Disposition: same day surgery
[2021-12-23] MEDS: MIDAZOLAM 5 MG/5 ML VIAL IV (09:16)
[2021-12-23] MEDS: fentaNYL 100 MCG/2 ML INJ 125 MCG IV (09:16)
[2021-12-23 09:20] VITALS: BP 128/75; PULSE 69; RESP 10; TEMP 36.3; O2SAT 94
[2021-12-23 09:25] VITALS: BP 108/66; PULSE 69; RESP 14; O2SAT 96
[2021-12-23 09:30] VITALS: BP 112/71; PULSE 65; RESP 14; O2SAT 95
[2021-12-23 09:35] VITALS: BP 111/72; PULSE 73; RESP 16; TEMP 36.6; O2SAT 100
[2021-12-23 09:53] VITALS: BP 122/69; PULSE 70; RESP 16; TEMP 36.4; O2SAT 99
--- NOTE | 2021-12-23 09:58 | SUR.PHASEII ---
Pt ready to go, left in stable condition.
== END 2021-12-23 10:07 | disposition home or self-care (01) ==
PROVIDERS: PCP Family Medicine; Referring Provider Surgery; Visit Provider Surgery
PROC: 0DJD8ZZ Inspection of Lower Intestinal Tract, Via Natural or Artificial Opening Endoscopic (ICD-10-PCS; CPT 45378; principal; 2021-12-23 09:15)
DX: Z12.11 Encounter for screening for malignant neoplasm of colon (principal); K64.8 Other hemorrhoids; K57.30 Diverticulosis of large intestine without perforation or abscess without bleeding
CPT/HCPCS: G0121; 99152; J2250; J3010